=== PATIENT | female | born 1945 | race African-American/Black ===

== ENCOUNTER 2019-03-08 15:43 | Inpatient (IN) ==
[2019-03-08] MEDS ORDERED: CLINDAMYCIN 600 MG/NS 600 MG/50 ML IVPB IV ONE (17:39)
--- NOTE | 2019-03-08 18:04 | Diag Imaging Result Doc PS360 ---
EXAM: FINGER(S)-RIGHT 03/08/2019 HISTORY: right 3rd digit cellulitis TECHNIQUE: Right middle finger three views COMMENT: There is soft tissue swelling. There is cortical erosion of the tuft and the lateral base of the distal phalanx. This is highly suggestive of osteomyelitis. IMPRESSION: Osteomyelitis of the distal phalanx. Electronically signed by Eriberto Whitman 03/08/2019 6:02 PM
[2019-03-08 18:37] LABS: BASO# 0.02 X1000 (0.0-0.2); BASO% 0.1 % (0.0-0.8); EOS# 0.01 X1000 (0.0-0.7); EOS% 0.1 % (0.0-10.0); HEMATOCRIT 38.6 % (37.0-47.0); HEMOGLOBIN 12.4 g/dL (12.0-16.0); IMM GRAN# 0.06 X1000 (0.0-0.04); IMM GRAN% 0.4 % (0.0-0.5); LYMPH# 1.59 X1000 (1.2-3.4); LYMPH% 11.9 % (20.5-51.1); MCH 27.7 PG (27-31); MCHC 32.1 g/dL (33-37); MCV 86.2 FL (81-99); MONO# 0.81 X1000 (0.11-0.59); MONO% 6.1 % (1.7-9.3); MPV 9.8 FL (7.4-10.4); NEUT# 10.85 X1000 (1.4-6.5); NEUT% 81.4 % (42.2-75.2); PLT 329 X1000 (130-400); RBC 4.48 XMIL (4.2-5.4); WBC 13.34 X1000 (4.8-10.8)
[2019-03-08 18:57] LABS: AGAP 11; ALBUMIN 4.4 g/dL (3.5-5.0); ALKALINE PHOSPHATASE 71 U/L (32-104); BUN 18 mg/dL (8-22); CALCIUM 9.7 mg/dL (8.8-10.2); CHLORIDE 99 mmol/L (98-107); COSMO 280; CREATININE 0.8 mg/dL (0.5-0.9); ESTIMATED GFR > 60; GLUCOSE 205 mg/dL (70-104); GOT 19 U/L (10-30); GPT 12 U/L (10-36); POTASSIUM 4.6 mmol/L (3.5-5.1); SODIUM 136 mmol/L (136-145); TCO2 26 mmol/L (25-35); TOTAL PROTEIN 8.5 g/dL (6.3-8.3)
[2019-03-08] MEDS ORDERED: VANCOMYCIN IV PER PHARMACY MISC SCH ×2 (19:15→19:30)
[2019-03-08] MEDS ORDERED: ZOFRAN IV PRN (19:28)
[2019-03-08] MEDS ORDERED: TYLENOL PO PRN ×2 (19:28→21:44)
[2019-03-08] MEDS ORDERED: CLINDAMYCIN 600 MG/D5W 600 MG/50 ML IVPB IV ONE (19:30)
--- NOTE | 2019-03-08 19:48 | PROVIDER DOCUMENTATION ---
This chart was entered by Nicol Hernandez Scribe, acting as scribe for Kelly Abdalla CRNP. HPI-General Adult - General Chief Complaint: Extremity Pain Stated Complaint: FINGER SWELLING Time Seen by Provider: 03/08/19 16:00 Source: patient Allergies/Adverse Reactions: Patient Allergies Allergy/AdvReac Type Severity Reaction Status Date / Time No Known Allergies Allergy Verified 01/24/15 00:49 Home Medications: Home Medication List Medication Instructions Recorded Confirmed Last Taken Type Amlodipine Besylate 10 mg PO DAILY 01/24/15 01/24/15 Unknown History Aspirin [[place] Aspirin EC] 81 mg PO DAILY 01/24/15 01/24/15 01/23/15 15:00 History Clopidogrel [Plavix] 75 mg PO DAILY #30 tablet 01/24/15 Unknown Rx Colesevelam HCl [Welchol] 625 mg PO BID 01/24/15 01/24/15 Unknown History Hyoscyamine Sulfate 0.125 mg PO Q6H PRN PRN 01/24/15 01/24/15 Unknown History Lisinopril 40 mg PO DAILY 01/24/15 01/24/15 01/23/15 History Metformin HCl [Fortamet] 500 mg PO DAILY 01/24/15 01/24/15 Unknown History Methocarbamol [Robaxin] 500 mg PO Q6H PRN PRN #60 tablet 01/24/15 Unknown Rx Omeprazole 40 mg PO DAILY 01/24/15 01/24/15 Unknown History ROSUVAstatin [Crestor] 10 mg PO DAILY 01/24/15 01/24/15 Unknown History Clonidine [Catapres] 0.1 mg PO BID #60 tablet 01/25/15 Unknown Rx Cetirizine [Zyrtec] 10 mg PO DAILY #20 tab 03/03/17 Unknown Rx - History of Present Illness -Gen Adult Nature of Presenting Problems: Patient is a 73 yobf who complains of right 3rd digit pain and swelling x 1 week. States her hand and forearm were also swollen, but she started taking abx prescribed by her pcp Dr. Iqbal, and the swelling in her hand and forearm improved. Today she noticed that her fingertip "felt spongy", so she came in to be evaluated for this. Denies fever, injury, or any other complaints. Hx of IDDM. Pt non-toxic in appearance. Location of Pain/Injury: reports: other (rt 3rd digit of hand) Quality of Pain: reports: fullness, pressure Severity: reports: moderate Onset/Duration: reports: gradual Timing: reports: still present, improving, constant Context/Activities at Onset: reports: light activity Modifying Factors: improves with: other (abx) Associated Symptoms: reports: denies symptoms Similar Symptoms Previously?: Yes Recently seen or treated by another doctor?: Yes (dr iqbal and placed on abx) Review of Systems - Adult - REVIEW OF SYSTEMS - ADULT Constitutional: reports: no symptoms reported. denies: chills, fever Eyes: reports: no symptoms reported Ears, Nose, Mouth & Throat: reports: no symptoms reported Cardiovascular: reports: no symptoms reported. denies: chest pain, palpitations Respiratory: reports: no symptoms reported. denies: cough, shortness of breath, wheezing Gastrointestinal: reports: no symptoms reported. denies: abdominal pain, diarrhea, nausea, vomiting Genitourinary: reports: no symptoms reported Musculoskeletal: reports: see HPI, other (3rd rt digit on hand) Integumentary: reports: see HPI, other (redness and swelling noted to rt 3rd digit) Neurological: reports: no symptoms reported Psychiatric: reports: no symptoms reported Endocrine: reports: no symptoms reported Hematologic/Lymphatic: reports: no symptoms reported Allergic/Immunologic: reports: no symptoms reported All Other Systems: Reviewed and Negative Past History - Adult - PAST MEDICAL HISTORY-ADULT Review of Records: reports: Old Records Reviewed, Nursing Assessment Review, Medications Reviewed, Social history reviewed & non-contributory. 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 Other Conditions: reports: denies history - PRIOR SURGERIES/PROCEDURES Surgical/Procedure History: reports: reviewed, not pertinent, other (fibroids) - PRIOR HOSPITALIZATIONS Prior Hospitalizations: reports: for similar symptoms - IMMUNIZATION STATUS Childhood Immunizations: See Nurse Assessment Flu Vaccine: See Nurse Assessment - FAMILY HISTORY Family History: reviewed, not pertinent - SOCIAL HISTORY Smoking: denies Substance Use: denies Living Situation: family Physical Exam-General - PHYSICAL EXAM-ADULT Initial Vital Signs Reviewed: Yes - CONSTITUTIONAL General Appearance: alert, no apparent distress - EYES Eyes: PERRL/EOMI - HEAD, EARS, NOSE, MOUTH & THROAT HENMT: normocephalic/atraumatic, moist mucous membranes - NECK Neck: non-tender, full range of motion, supple, normal inspection - RESPIRATORY Respiratory: chest non-tender, lungs clear, normal breath sounds, no pleuratic chest pain, no respiratory distress, no accessory muscle use - CARDIOVASCULAR Cardiovascular: normal peripheral pulses, regular rate, rhythm, no gallop, no murmur - CHEST (BREASTS) Chest/Breast: deferred - GASTROINTESTINAL (ABDOMEN) Abdominal Exam: normal bowel sounds, non tender, soft - GENITOURINARY Female Genitalia/Pelvic Exam: deferred Rectal Exam: deferred Hemoccult Exam: deferred - LYMPHATIC Lymphatic: no adenopathy - MUSCULOSKELETAL Extremity: normal range of motion, non-tender, normal gait, normal inspection, erythema (rt 3rd digit), swelling (3rd rt digit), tenderness (rt 3rd digit), other (nail has sponginess with clubbing seen) Peripheral Pulses: radial (R): 3+ - SKIN Integumentary: normal color, warm/dry, erythema (3rd digit rt hand), swelling (3rd digit), tenderness (3rd digit rt hand). negative: cyanosis, diaphoresis, jaundice, mottled, pallor - NEUROLOGIC Neurologic: grossly normal, no motor/sensory deficits - PSYCHIATRIC Psych/Mental Status: normal mood/affect, normal thought content, normal thought process, oriented x 3 Progress - PLAN OF CARE/RESULTS Progress/Plan/Lab Results: Vital Signs - 8 hr 03/08/19 15:49 Temperature 98 F Pulse Rate 78 Respiratory Rate 18 O2 Sat by Pulse Oximetry 98 Laboratory Results - last 24 hr 03/08/19 15:53 POC Glucose 218 H Orders Category Date Time Status Finger Stick Blood Sugar (ED) DIRECTED Care 03/08/19 15:55 Active Repeat Vital Signs .Blood Pressure Care 03/08/19 17:33 Active Saline Loc NOW Care 03/08/19 17:39 Active FINGER(S)-RIGHT [RAD] Stat Exams 03/08/19 17:39 Ordered BLOOD CULTURE [BLDCUL] Stat Lab 03/08/19 17:39 Uncollected CBC WITH DIFF [HEME] Stat Lab 03/08/19 17:39 Ordered COMPREHENSIVE METABOLIC PANEL [CHEM] Stat Lab 03/08/19 17:39 Uncollected Clindamycin 600 mg/Ns Med 03/08/19 17:39 Active 600 mg in 50 ml IV NOW Result Diagrams: 03/08/19 18:25 03/08/19 18:25 - XRAY 1 XRAY: Right XRAY Study: other (third digit: [facility] - [address], [address], [place] [address] [facility] - [address] [place] [address] Department of Imaging Patient: LAURA BOLIVARADM Date: 03/08/19MR#: [id number] : 8ADM Status: REG ERAt#: [id number] Age/Sex: 73/FRoom/Bed: Loc: P.ED Ordering Physician: Kelly Abdalla Family Physician: Maxim Iqbal MD Reason for Procedure: right 3rd digit cellulitis Signed EXAM: FINGER(S)-RIGHT 03/08/2019 HISTORY: right 3rd digit cellulitis TECHNIQUE: Right middle finger three views COMMENT: There is soft tissue swelling. There is cortical erosion of the tuft and the lateral base of the distal phalanx. This is highly suggestive of osteomyelitis. IMPRESSION: Osteomyelitis of the distal phalanx. Electronically signed by Eriberto Whitman 03/08/2019 6:02 PM 03/08/191801 Interpreting Physician: Eriberto Whitman MD Dictated Date/Time: 03/08/191800 cc: Kelly Abdalla; Maxim Iqbal MD) - CONSULTS/PCP/HOSPITALIST Notification #1 *Consult/PCP/Hospitalist*: Dr. Iqbal Time Discussed: 19:20 Reason/Comments: admission- osteomyelitis Consult Disposition: Will see in ED, Admit (Manager Of Photography to enter orders.) Departure - Departure Date of Disposition Decision: 03/08/19 Time of Disposition Decision: 19:20 DIAGNOSIS: Osteomyelitis Qualifiers: Osteomyelitis type: unspecified type Osteomyelitis location: unspecified site Qualified Code(s): M86.9 - Osteomyelitis, unspecified Disposition: ADMITTED INPATIENT 09 Certified Medical Emergency: Emergent Condition: Stable Referrals and Follow-Ups: Maxim Iqbal MD [Primary Care Provider] - - Critical Care Note This patient required my direct & personal management of CC.: No Attestation - Physician/ TARA Attestation Patient care was provided by Advanced Practice Provider:: Yes Advanced Practice Provider documentation review:: The Mid-level provider documentation, treatment plan and medical decision making was reviewed by the physician who agrees with all treatment and medical decision making by the MLP. The physician spent face to face time with patient:: No Advanced Practice Provider documentation review:: Supervising physician onsite and consulted in the evaluation and care of this patient. The physician did not have a face to face encounter with the patient. This chart was documented by the indicated scribe, (Nicol Hernandez Scribe) and accurately reflects the services I performed and decisions made by me, Kelly Abdalla CRNP, as attested by the provider's signature.
[2019-03-08] MEDS: VANCOMYCIN 1 GM/NS 1 GM/250 ML IVPB IV SCH ×2 (21:00→22:15)
[2019-03-08] MEDS: NS 1,000 ML IV SCH (22:15)
[2019-03-08] MEDS: HUMALOG (PARKWAY) SUBQ SCH (23:13)
[2019-03-09] MEDS: ZOSYN 3.375 GM in NS 50 ML IV SCH ×4 (00:36→18:48)
[2019-03-09 02:11] LABS: URINE SOURCE CLEAN CATCH
[2019-03-09 02:40] LABS: BILIRUBIN URINE NEGATIVE (NEGATIVE); BLOOD URINE NEGATIVE (NEGATIVE); CLARITY CLEAR (CLEAR); GLUCOSE URINE NEGATIVE (NEGATIVE); KETONE URINE NEGATIVE (NEGATIVE); LEUKOCYTES URINE NEGATIVE (NEGATIVE); NITRITE URINE NEGATIVE (NEGATIVE); PROTEIN URINE NEGATIVE (NEGATIVE); URINE EPITHELIAL CELLS <10 /HPF (<10); UROBILINOGEN URINE 0.2 EU/dL (0.2-1.0)
[2019-03-09 02:42] LABS: URINE BACTERIA 2+ /HFP; URINE WBC NS /HPF (<10); URINE YEAST PRESENT /HPF
[2019-03-09 02:43] LABS: COLOR STRAW
--- NOTE | 2019-03-09 03:33 | HISTORY AND PHYSICAL ---
CHIEF COMPLAINT: Extremity pain. HISTORY OF PRESENT ILLNESS: The patient is a very pleasant female who presented to the office yesterday with swelling of her right hand and 2nd and 3rd digit on her right hand. Third digit being worse than the 2nd. She was placed on antibiotics and was told to call the office back today if symptoms worsened. She called back noting that her hand was less swollen, but her fingertip appears to be nonchanged. Currently, her right hand swelling is visibly better. Her MCP swelling is better but she still has marked swelling from her PIP distally. ALLERGIES: No known drug allergies. MEDICATIONS: Amlodipine 10, aspirin, Glucophage. PAST MEDICAL HISTORY: Hypertension, diabetes. SURGICAL HISTORY: She has had fibroids in her uterus. FAMILY HISTORY: Noncontributory. REVIEW OF SYSTEMS: The patient does complain of pain on her 3rd digit of her right hand, swelling to this digit. Notes that her hand swelling is improved. Denies any fevers, chills, but does state that she still has some sensation distally on the fingertips although it is tender. Denies any chest pain, palpitations. Denies fevers, chills, dysuria, urinary frequency, urgency, hesitancy, polyuria, polydipsia. Denies cough, congestion, diarrhea, constipation, melena. FAMILY HISTORY: Noncontributory. PHYSICAL EXAMINATION: VITAL SIGNS: Reviewed and stable. GENERAL: She is awake, alert. She is in no respiratory distress. HEENT: Normocephalic. NECK: Supple. CARDIOVASCULAR: Regular rate. CHEST: Clear. ABDOMEN: Soft. EXTREMITIES: Moves all extremities. NEUROLOGIC: No focal changes. SKIN: Her right 3rd digit is erythematous from the PIP distally. This is improved. She was previously erythematous to her mid hand as well as swelling to the mid hand. There is no current swelling in her hand. She has good capillary refill. The finger is tender, warm. Mild clubbing noted over fingertips. ASSESSMENT: 1. Cellulitis right fingertip with possible osteomyelitis per x-ray. 2. Diabetes. 3. Hypertension. PLAN: We will continue patient in the hospital. Continue antibiotics, place her on vancomycin and Zosyn. We will consult Surgery as I am afraid her fingertip may need to be drained and we will follow. cc: Maxim Iqbal MD
[2019-03-09] MEDS: HUMALOG (PARKWAY) SUBQ SCH ×4 (06:24→23:32)
[2019-03-09 06:34] LABS: HEMATOCRIT 39.4 % (37.0-47.0); HEMOGLOBIN 12.5 g/dL (12.0-16.0); MCH 27.6 PG (27-31); MCHC 31.7 g/dL (33-37); MPV 9.8 FL (7.4-10.4); RBC 4.53 XMIL (4.2-5.4); RDW 13.2 % (11.5-14.5); WBC 11.25 X1000 (4.8-10.8)
[2019-03-09 06:48] LABS: AGAP 13; ALKALINE PHOSPHATASE 65 U/L (32-104); BUN 16 mg/dL (8-22); CALCIUM 9.5 mg/dL (8.8-10.2); CHLORIDE 101 mmol/L (98-107); COSMO 283; CREATININE 0.8 mg/dL (0.5-0.9); ESTIMATED GFR > 60; GLUCOSE 114 mg/dL (70-104); GOT 18 U/L (10-30); GPT 11 U/L (10-36); POTASSIUM 3.8 mmol/L (3.5-5.1); SODIUM 141 mmol/L (136-145); TCO2 27 mmol/L (25-35); TOTAL PROTEIN 8.5 g/dL (6.3-8.3)
--- NOTE | 2019-03-09 11:33 | GENERAL SURGERY CONSULTATION ---
DATE: 03/09/2019 REQUESTING PHYSICIAN: Maxim Iqbal MD REASON FOR CONSULTATION: Right third digit infection. HISTORY OF PRESENT ILLNESS: A 73-year-old female who presented to Dr. Iqbal's office with swelling of her right hand and 2nd and 3rd digit with the 3rd digit being worse. She was placed on antibiotics and was sent home. Apparently these symptoms got worse. She called back and was admitted to the emergency department. She had an x-ray that showed potential osteomyelitis of the distal 3rd phalanx. She was admitted. I was asked to weigh an opinion. The patient says she has pain noted there. She is not sure when this started. PAST MEDICAL HISTORY: Hypertension, diabetes. PAST SURGICAL HISTORY: Includes fibroid removal for uterus. ALLERGIES: None. HOME MEDICATIONS: Reviewed. FAMILY HISTORY: Reviewed with the patient and noncontributory. SOCIAL HISTORY: Lives at home. REVIEW OF SYSTEMS: A full 10 point review of systems obtained, negative except as specified in HPI. PHYSICAL EXAMINATION: Vital Signs: Patient is currently afebrile. Her vital signs are stable. General: No acute distress. Alert, oriented. female looks stated age. HEENT: Normocephalic, atraumatic. Pupils equal, round, reactive to light. Mucous membranes moist. Oropharynx benign. Neck: Supple. Trachea midline. Cardiovascular: Regular rate and rhythm. Lungs: Clear. Abdomen: Soft, nontender, nondistended. Extremities: The 3rd digit has erythema and swelling as well as fluctuance noted on the dorsal aspect right at the mid aspect of the middle finger. Vascular: Extremities perfused. Neurologic: Grossly intact. Skin: As noted above. LABORATORY: White blood count 13. Remainder of labs reviewed. X-ray reviewed and noted above. ASSESSMENT AND PLAN: A 73-year-old female with right 3rd digit on the right hand. Infection of the finger. At this time, I performed a bedside incision and drainage and drained a significant amount of purulence. We will get a culture from it. We will continue to follow. Maybe with a combination of drain and antibiotics we can hold off on amputation, but told the patient with osteomyelitis it may ultimately require an amputation but will continue to follow. Please see dictation on operative report. cc: Emigdio Farah MD
--- NOTE | 2019-03-09 11:54 | OPERATIVE NOTE ---
PROCEDURE DATE: 03/09/2019 PREOPERATIVE DIAGNOSIS: Infection of the right middle finger. POSTOPERATIVE DIAGNOSIS: Infection of the right middle finger. PROCEDURE: Incision and drainage of right middle finger. SURGEON: Emigdio Farah MD. STATION SUPERINTENDENT: None. ANESTHESIA: None. FINDINGS: Significant purulence encountered. COMPLICATIONS: None. ESTIMATED BLOOD LOSS: Minimal. SPECIMEN: Removed culture. BRIEF HISTORY: A 73-year-old female admitted for antibiotics for infection of her finger so that she would benefit from drainage. The risks, benefits, and alternatives were discussed. All questions answered. DESCRIPTION OF PROCEDURE: After informed consent was obtained, the patient remained in the room. We prepped the finger with sterile alcohol prep. We then used an 18-gauge needle to unroof the abscess, expressed a significant amount of purulence, sent for culture, drained as much as we could, placed a dressing. The patient tolerated the procedure well, remained in her bed. cc: Emigdio Farah MD
[2019-03-09] MEDS: NS 1,000 ML IV SCH (14:52)
[2019-03-09] MEDS: VANCOMYCIN 1,700 MG in NS 250 ML IV SCH (23:32)
--- NOTE | 2019-03-10 00:04 | PROGRESS NOTE ---
DATE: 03/09/2019 SUBJECTIVE: Patient notes that after having finger drained it does not hurt nearly as bad. It is still draining some. She is able to move it a little bit better. Denies any fevers or chills. PHYSICAL EXAMINATION: Vital Signs: Temperature 98.6 degrees, pulse 75, respiratory rate 18, BP 112/73. General: Patient is in no current respiratory distress. She is very pleasant to talk with. HEENT: Normocephalic. Neck: Supple. Cardiovascular: Regular rate. Chest: Clear. Abdomen: Soft. Extremities: Moves all extremities. Skin: She is noted to have less edema and positive drainage from her right hand 3rd digit. ASSESSMENT: 1. Diabetes. 2. Hypertension. PLAN: We are going to continue patient in the hospital. Continue fluids, antibiotics, pain control and we will follow. cc: Maxim Iqbal MD
[2019-03-10] MEDS: NS 1,000 ML IV SCH ×3 (01:23→11:40)
[2019-03-10] MEDS: ZOSYN 3.375 GM in NS 50 ML IV SCH ×3 (02:06→13:21)
[2019-03-10] MEDS: HUMALOG (PARKWAY) SUBQ SCH ×4 (06:49→21:21)
[2019-03-10] MEDS: JANUVIA PO SCH (09:30)
[2019-03-10] MEDS: ASPIRIN EC PO SCH (09:31)
[2019-03-10] MEDS: PRINIVIL PO SCH (09:31)
[2019-03-10] MEDS: NORVASC PO SCH (09:31)
[2019-03-10] MEDS: COREG PO SCH ×2 (09:31→21:10)
[2019-03-10] MEDS: DITROPAN XL PO SCH (09:31)
--- NOTE | 2019-03-10 13:06 | GENERAL SURGERY PROGRESS NOTE ---
DATE: 03/10/2019 SUBJECTIVE: Patient seems to be doing okay. She is feeling better after her finger was drained. OBJECTIVE: Vital Signs: Patient is currently afebrile. Her vital signs are stable. General exam: No acute distress. HEENT: Normocephalic, atraumatic. Pupils equal, round, reactive to light. Mucous membranes moist. Oropharynx benign. Neck: Supple. Trachea midline. Cardiovascular: Regular rate and rhythm. Lungs: Grossly clear. Abdomen: Soft, nontender, nondistended. Extremities: Hand on the right: The digits seem to be improving. Better range of motion. Neurologic: Grossly intact. Skin: As noted above. LABORATORY: White blood cell count from yesterday was 11 which is down. Remainder of labs reviewed. ASSESSMENT AND PLAN: A 73-year-old female status post incision and drainage of right third digit. 1. Status post drainage at this time. She seems to be doing well. She does have the potential for osteomyelitis on x-rays. Would like to continue suppressive antibiotics. Continue to monitor. She has made some clinical improvement. cc: Emigdio Farah MD
--- NOTE | 2019-03-10 15:58 | PROGRESS NOTE ---
DATE: 03/10/2019 SUBJECTIVE: Patient notes that her finger is feeling a lot better. She is able to bend it a lot better than she was previously. PHYSICAL EXAMINATION: Vital Signs: Reviewed. Temperature 98 degrees, pulse 74, respiratory rate 18, BP 171/89. General: Patient is very pleasant. She is in no respiratory distress. HEENT: Normocephalic. Neck: Supple. Cardiovascular: Regular rate. Chest: Clear. Abdomen: Soft. Extremities: Moves all extremities. Skin: Her right third digit has less swelling and better movement. ASSESSMENT: 1. Cellulitis, right third digit with possible osteomyelitis per x-ray. We will recheck this on Tuesday. 2. Diabetes. 3. Hypertension. PLAN: Continue antibiotics through the weekend. Recheck her x-ray on Tuesday. Follow her blood sugars, which have been well controlled. cc: Maxim Iqbal MD
[2019-03-10] MEDS: ZOCOR PO SCH (21:10)
[2019-03-10] MEDS: VANCOMYCIN 1,700 MG in NS 250 ML IV SCH (21:10)
[2019-03-10] MEDS: GLUCOTROL XL PO SCH ×2 (21:10→21:14)
[2019-03-11] MEDS: ZOSYN 3.375 GM in NS 50 ML IV SCH ×2 (01:00→08:22)
[2019-03-11] MEDS: HUMALOG (PARKWAY) SUBQ SCH ×4 (06:36→21:48)
[2019-03-11] MEDS: NS 1,000 ML IV SCH ×2 (06:36→11:48)
[2019-03-11 06:48] LABS: HEMATOCRIT 38.4 % (37.0-47.0); HEMOGLOBIN 12.1 g/dL (12.0-16.0); MCH 27.1 PG (27-31); MCHC 31.5 g/dL (33-37); MCV 86.1 FL (81-99); MPV 9.7 FL (7.4-10.4); RBC 4.46 XMIL (4.2-5.4); RDW 12.9 % (11.5-14.5); WBC 6.12 X1000 (4.8-10.8)
[2019-03-11 07:10] LABS: AGAP 12; ALBUMIN 3.6 g/dL (3.5-5.0); ALKALINE PHOSPHATASE 55 U/L (32-104); BUN 13 mg/dL (8-22); CALCIUM 9.2 mg/dL (8.8-10.2); CHLORIDE 104 mmol/L (98-107); COSMO 280; CREATININE 0.7 mg/dL (0.5-0.9); ESTIMATED GFR > 60; GLUCOSE 148 mg/dL (70-104); GOT 13 U/L (10-30); GPT 8 U/L (10-36); POTASSIUM 4.1 mmol/L (3.5-5.1); SODIUM 139 mmol/L (136-145); TCO2 23 mmol/L (25-35); TOTAL PROTEIN 7.7 g/dL (6.3-8.3)
[2019-03-11] MEDS: NORVASC PO SCH (08:22)
[2019-03-11] MEDS: DITROPAN XL PO SCH (08:22)
[2019-03-11] MEDS: COREG PO SCH ×2 (08:23→21:47)
[2019-03-11] MEDS: PRINIVIL PO SCH (08:23)
[2019-03-11] MEDS: JANUVIA PO SCH (08:23)
[2019-03-11] MEDS: ASPIRIN EC PO SCH (08:23)
--- NOTE | 2019-03-11 08:35 | GENERAL SURGERY PROGRESS NOTE ---
DATE: 03/11/2019 SUBJECTIVE: The patient seems to be doing okay. OBJECTIVE: Vital Signs: The patient is currently afebrile. Her vital signs are stable. General Examination: No acute distress. HEENT: Normocephalic, atraumatic. Pupils equal, round, reactive to light. Mucous membranes moist. Oropharynx benign. Neck: Supple. Trachea midline. Cardiovascular: Regular rate and rhythm. Lungs: Grossly clear. Abdomen: Soft, nontender, nondistended. Extremities: Moves all extremities. On the hand on the right, the digit seems to be improving. She has got better range of motion. She says she is feeling better. Neurologic: Grossly intact. Skin: As noted above. Laboratory: None this morning. Microbiology shows gram-positive cocci. ASSESSMENT AND PLAN: A 73-year-old female status post incision and drainage of right third digit. Status post drainage. At this time, she is doing well. Consider potential repeat x-rays tomorrow. We will continue suppressive antibiotics. There is a concern that she might have osteomyelitis of the distal phalanx. cc: Emigdio Farah MD
[2019-03-11] MEDS ORDERED: CLEOCIN PO SCH (09:45)
[2019-03-11] MEDS: KEFZOL 1 GM/D5W 1 GM/50 ML IVPB IV SCH ×2 (13:42→21:48)
--- NOTE | 2019-03-11 16:47 | PROGRESS NOTE ---
DATE: 03/11/2019 SUBJECTIVE: Patient notes that her finger is feeling a lot better. She has got better movement, has very little drainage. PHYSICAL: Temperature 98.3, pulse 70, respiratory 18, BP 169/70.General: Patient is awake, she is pleasant, she is in no distress. HEENT: Normocephalic. Neck: Supple. CV: Regular rate. Chest: Clear. Abdomen: Soft. Extremities: Moves all extremities. ASSESSMENT: 1. Osteomyelitis 4th digit right hand. 2. Methicillin sensitive Staph aureus. 3. Diabetes. 4. Hypertension. PLAN: We are going to continue patient in the hospital. Dr. Padilla wants 6 weeks of IV Ancef. We will keep her in the hospital today, she has PICC line consult and will follow. cc: Maxim Iqbal MD
[2019-03-11] MEDS: GLUCOTROL XL PO SCH (21:47)
[2019-03-11] MEDS: ZOCOR PO SCH (21:48)
[2019-03-12] MEDS: KEFZOL 1 GM/D5W 1 GM/50 ML IVPB IV SCH ×3 (04:03→21:24)
[2019-03-12] MEDS: HUMALOG (PARKWAY) SUBQ SCH ×4 (06:17→21:24)
[2019-03-12 07:06] LABS: INR 1.06; PROTIME 14.4 Seconds (11.0-16.0)
--- NOTE | 2019-03-12 07:44 | GENERAL SURGERY PROGRESS NOTE ---
DATE: 03/12/2019 SUBJECTIVE: Patient seems to be doing okay. Her finger is a little bit more swollen today, but otherwise she is doing okay. OBJECTIVE: Vital Signs: Patient is currently afebrile. Her vital signs are stable. General: No acute distress. HEENT: Normocephalic, atraumatic. Pupils equal, round, reactive to light. Mucous membranes moist. Oropharynx benign. Neck: Supple. Trachea midline. Cardiovascular: Regular rate and rhythm. Lungs: Grossly clear. Abdomen: Soft, nontender, nondistended. Extremities: Right third digit of the hand appears a little more swollen, but I do not feel any additional fluctuance at this time. She still has good range of motion. Neurologic: Grossly intact. Skin: As noted above. Vascular: All extremities perfused. LABORATORY: White blood cell count yesterday was 6, which is down from admission. Remainder of labs reviewed. ASSESSMENT AND PLAN: A 73-year-old female status post incision and drainage of right third digit. 1. Status post drainage at this time. She is doing okay. She still has some deformity to her finger, and we will get a repeat x-ray this morning per Dr. Iqbal to evaluate if still with osteomyelitis. I am concerned she still may have it and may ultimately require amputation. cc: Emigdio Farah MD
[2019-03-12] MEDS: DITROPAN XL PO SCH (09:06)
[2019-03-12] MEDS: NORVASC PO SCH (09:06)
[2019-03-12] MEDS: ASPIRIN EC PO SCH (09:06)
[2019-03-12] MEDS: PRINIVIL PO SCH (09:06)
[2019-03-12] MEDS: COREG PO SCH ×2 (09:06→21:23)
[2019-03-12] MEDS: JANUVIA PO SCH (09:06)
[2019-03-12] MEDS: NS 1,000 ML IV SCH (11:11)
--- NOTE | 2019-03-12 19:39 | PROGRESS NOTE ---
DATE: 03/12/2019 SUBJECTIVE: The patient with no new complaints. Notes that her finger continues to improve. She has better movement. PHYSICAL EXAM: Vital signs: Temperature 98.3 degrees, pulse 70, respiratory rate 18, BP 169/70. General: Patient is in no current distress. She is very pleasant. HEENT: Normocephalic. Neck: Supple. Cardiovascular: Regular rate. Chest: Clear. Abdomen: Soft. Extremities: Moves all extremities. Skin: Her PIP of her third digit is improving. She has some dryness and cracking of the skin, less tender. No current drainage. ASSESSMENT: 1. Methicillin-sensitive Staph aureus of her fingertip. 2. Osteomyelitis. 3. Diet-controlled diabetes. 4. Hypertension. PLAN: We are going to continue patient in the hospital until which time she have a peripherally inserted central catheter line placed. She will need antibiotics, Ancef 4 to 6 weeks. cc: Maxim Iqbal MD
[2019-03-12] MEDS: ZOCOR PO SCH (21:23)
[2019-03-12] MEDS: GLUCOTROL XL PO SCH (21:24)
[2019-03-13] MEDS: KEFZOL 1 GM/D5W 1 GM/50 ML IVPB IV SCH ×3 (04:15→22:54)
[2019-03-13] MEDS: HUMALOG (PARKWAY) SUBQ SCH ×4 (06:30→22:34)
--- NOTE | 2019-03-13 08:09 | Diag Imaging Result Doc PS360 ---
EXAM: FINGER(S)-RIGHT HISTORY: eval for osteo TECHNIQUE: Right third finger three views COMPARISON: 03/08/2019 FINDINGS: There is osteolysis involving the distal phalanx of the third finger. Prominent soft tissue swelling is present. Small erosion to the distal portion of the middle phalanx. IMPRESSION: Worsening osteomyelitis Electronically signed by Davian Wilkinson 03/13/2019 8:07 AM
[2019-03-13] MEDS: DITROPAN XL PO SCH (09:41)
[2019-03-13] MEDS: COREG PO SCH ×2 (09:41→20:56)
[2019-03-13] MEDS: PRINIVIL PO SCH (09:41)
[2019-03-13] MEDS: ASPIRIN EC PO SCH (09:41)
[2019-03-13] MEDS: JANUVIA PO SCH (09:41)
[2019-03-13] MEDS: NORVASC PO SCH (09:41)
[2019-03-13] MEDS: NS 1,000 ML IV SCH (10:23)
--- NOTE | 2019-03-13 10:31 | GENERAL SURGERY PROGRESS NOTE ---
DATE: 03/13/2019 SUBJECTIVE: Patient seems to be doing okay. We are awaiting a PICC line placement. OBJECTIVE: Vital Signs: Patient is currently afebrile. Her vital signs stable. General: No acute distress. HEENT: Normocephalic, atraumatic. Pupils equal, round, reactive to light. Mucous membranes moist. Oropharynx benign. Neck: Supple, trachea midline. Cardiovascular: Regular rate and rhythm. Lungs: Grossly clear. Abdomen: Soft, nontender, nondistended. Extremities: Right 3rd digit appears stable. Vascular: All extremities perfused. Neurologic: Grossly intact. Skin: As noted above. LABORATORY: None this morning and none yesterday. ASSESSMENT AND PLAN: A 73-year-old female status post incision and drainage of right third digit. 1. Status post drainage. At this time, she is doing okay. We are waiting for a PICC line placement, so she can get IV antibiotics for 4 to 6 weeks. 2. We will continue to follow while she is in the hospital but hopefully she can get discharged today with a PICC line. cc: Emigdio Farah MD
--- NOTE | 2019-03-13 12:22 | DISCHARGE SUMMARY ---
ADMISSION DATE: 03/08/2019 DISCHARGE DATE: 03/12/2019 ADMISSION DIAGNOSES: 1. Cellulitis of right fingertip with possible osteomyelitis per x-ray. 2. Diabetes. 3. Hypertension. DISCHARGE DIAGNOSES: 1. Osteomyelitis of fourth digit, right hand. 2. Methicillin-resistant Staphylococcus aureus. 3. Diabetes. 4. Hypertension. CONSULTATIONS: 1. Dr. Padilla will follow the patient for 6 weeks of IV Ancef. 2. Sofi Tenorio. 3. Dr. Iqbal. SURGERIES OR PROCEDURES: On 03/09/2019, an incision and drainage of right middle finger with culture obtained which grew out MRSA which actually was oxacillin-sensitive, penicillin-resistant. HOSPITAL COURSE: Ms. Pickard is a 73-year-old female who presented to Dr. Iqbal's office the day before with swelling in her right hand, second and third digits on the right hand, third digit being worse than the second. She was placed on antibiotics. Was told to call the office back if symptoms worsened. She called back, stating that the hand was less swollen but her fingertip appeared to be unchanged. She was directly admitted to the floor and surgery was consulted. Eventually, Dr. Padilla was also consulted. Actually, I believe she went through the emergency department, not direct admission. On the day after admission, she had incision and drainage of that finger. The wound came back positive ORSA, oxacillin-sensitive but penicillin-resistant. She was continued on antibiotic. White blood cell count decreased. Then the plan was for Dr. Padilla to follow the patient on 6 weeks of IV Ancef with PICC line placement. DISCHARGE VITAL SIGNS: Temperature 98.3 degrees, heart rate 75, respiratory rate 18, blood pressure 144/74, O2 saturation 97% on room air. DISCHARGE LAB DATA: White blood cells 6000, hemoglobin 12, hematocrit 38, platelet count 313,000. INR is 1.06. Sodium 139, potassium 4.1, BUN 13, creatinine 0.7, glucose 135, calcium 9.2, magnesium 2.0. Bilirubin 0.30, AST 13, ALT 8, albumin 3.6. Micro: Blood cultures negative. Urine culture negative. Abscess of the right hand, middle finger, was oxacillin-sensitive Staphylococcus aureus. PERTINENT IMAGING: There was one finger x-ray that was back on the and it showed osteomyelitis of the distal phalanx. DISCHARGE MEDICATIONS: 1. Six weeks of Ancef. 2. Amlodipine 10 mg p.o. daily. 3. Coreg 12.5 mg p.o. twice daily. 4. Glipizide 5 mg p.o. nightly. 5. Januvia 100 mg p.o. daily. 6. Lisinopril 40 mg p.o. daily. 7. Oxybutynin 10 mg p.o. daily. 8. Simvastatin 20 mg p.o. daily. 9. Aspirin 81 mg p.o. daily. DISCHARGE DIET: Diabetic. DISCHARGE ACTIVITY: As tolerated. PHYSICIAN FOLLOWUP: Dr. Iqbal, Dr. Padilla, Dr. Farah. DISCHARGE INSTRUCTIONS: If your condition changes, contact physician and/or return to the emergency department. Changes may include, but are not limited to shortness of breath, increased fatigue, excessive bleeding, unexplained weight loss or gain, unmanageable pain, signs or symptoms of infection. You will have 6 weeks of antibiotics. Take all medications as prescribed. Call and make a followup appointment with your PCP. Call Dr. Padilla's office and make a followup appointment. If your symptoms persist or become worse, come to the emergency department. Wound care per Dr. Farah. DISCHARGE DISPOSITION: Home with home health. Dictated by BECKY Virgen for Maxim Iqbal MD cc: BECKY Virgen MD
[2019-03-13] MEDS ORDERED: NS 250 ML ONE (13:32)
--- NOTE | 2019-03-13 19:16 | PROGRESS NOTE ---
DATE: 03/13/2019 SUBJECTIVE: Patient has no new complaints. Overall, she states she is feeling fine. PHYSICAL EXAMINATION: Vital signs: Reviewed. Temperature 98 degrees, pulse 70, respiratory rate 18, BP 169/70. General: Patient is in no current respiratory distress. Pleasant to talk with. HEENT: Normocephalic. Neck: Supple. Cardiovascular: Regular rhythm and rate. Chest: Clear. Abdomen: Soft. Extremities: Moves all extremities. Skin: Third digit of right hand is bandaged, clean, dry, and intact. She does have some dryness of her skin over her previous wound. ASSESSMENT/PLAN: Osteomyelitis. Unfortunately, it appears as though her x-ray has worsened. Therefore, we are going to cancel her discharge today. We will get her set up with a PICC line as she certainly is going to need long-term antibiotics and will continue to follow. cc: Maxim Iqbal MD
[2019-03-13] MEDS: ZOCOR PO SCH (20:56)
[2019-03-13] MEDS: GLUCOTROL XL PO SCH (22:34)
[2019-03-14] MEDS: HUMALOG (PARKWAY) SUBQ SCH ×4 (06:22→21:54)
[2019-03-14] MEDS: KEFZOL 1 GM/D5W 1 GM/50 ML IVPB IV SCH ×3 (06:26→23:00)
--- NOTE | 2019-03-14 06:45 | GENERAL SURGERY PROGRESS NOTE ---
DATE: 03/14/2019 SUBJECTIVE: The patient did okay. Unfortunately her x-ray yesterday showed worsening osteomyelitis of the finger. A PICC line has been ordered. OBJECTIVE: Vital Signs: Patient is currently afebrile. Vital signs stable. General: No acute distress. Cardiovascular: Regular rate and rhythm. Lungs: Grossly clear. Abdomen: Soft, nontender, nondistended. Extremities: Right hand 3rd digit appears stable. Dressing intact. No active drainage. ASSESSMENT AND PLAN: A 73-year-old female with osteomyelitis of the right third digit, status post drainage. Status post drainage. At this time we will need to get a peripherally inserted central catheter (PICC) line. I did discuss the option of an amputation on her but she does want to try to pursue antibiotics first. We will hopefully be able to get everything arranged. cc: Emigdio Farah MD
[2019-03-14] MEDS: NS 1,000 ML IV SCH ×3 (07:55→13:16)
[2019-03-14] MEDS: JANUVIA PO SCH (08:59)
[2019-03-14] MEDS: NORVASC PO SCH (08:59)
[2019-03-14] MEDS: PRINIVIL PO SCH (08:59)
[2019-03-14] MEDS: COREG PO SCH ×2 (08:59→21:08)
[2019-03-14] MEDS: ASPIRIN EC PO SCH (08:59)
[2019-03-14] MEDS: DITROPAN XL PO SCH (08:59)
[2019-03-14] MEDS: ZOCOR PO SCH (21:08)
[2019-03-14] MEDS: GLUCOTROL XL PO SCH (21:08)
--- NOTE | 2019-03-15 04:15 | PROGRESS NOTE ---
DATE: 03/14/2019 SUBJECTIVE: Patient has no new complaints. PHYSICAL EXAMINATION: Vital Signs: Reviewed. Temperature 98.2 degrees, pulse 69, respiratory rate 18, BP 148/77. General: Patient is awake, pleasant. She is in no distress. HEENT: Normocephalic. Neck: Supple. Cardiovascular: Regular rate. Chest: Clear. Abdomen: Soft. Extremities: Moves all extremities. Neurologic: No changes. ASSESSMENT: 1. Osteomyelitis 3rd digit right hand. Bone, unfortunately, does appear worse on most recent x- ray. 2. Diabetes. Blood sugar controlled. 3. Hypertension. PLAN: We will continue Ancef for methicillin sensitive Staph aureus. When she gets a PICC, hopefully, she can discharge home. She will continue antibiotics at home for the next 6 weeks. cc: Maxim Iqbal MD
[2019-03-15 05:33] VITALS: BP 150/74
[2019-03-15] MEDS: NS 1,000 ML IV SCH (05:59)
[2019-03-15] MEDS: HUMALOG (PARKWAY) SUBQ SCH ×2 (06:00→11:06)
[2019-03-15] MEDS: KEFZOL 1 GM/D5W 1 GM/50 ML IVPB IV SCH ×3 (06:00→14:23)
[2019-03-15] MEDS: JANUVIA PO SCH (09:15)
[2019-03-15] MEDS: NORVASC PO SCH (09:15)
[2019-03-15] MEDS: PRINIVIL PO SCH (09:15)
[2019-03-15] MEDS: DITROPAN XL PO SCH (09:15)
[2019-03-15] MEDS: ASPIRIN EC PO SCH (09:15)
[2019-03-15] MEDS: COREG PO SCH (09:16)
--- NOTE | 2019-03-15 12:13 | GENERAL SURGERY PROGRESS NOTE ---
DATE: 03/15/2019 SUBJECTIVE: Patient doing okay. Discussed case with Dr. Iqbal. Plan for PICC line and long- term antibiotics has been started. OBJECTIVE: Vital Signs: The patient is currently afebrile. Her vital signs are stable. General Examination: No acute distress. Cardiovascular: Regular rate and rhythm. Lungs: Grossly clear. Abdomen: Soft, nontender. Right hand essentially unchanged with dressing intact. ASSESSMENT AND PLAN: A 73-year-old female with osteomyelitis of the right 3rd digit, status post drainage. Status post drainage. At this time, continue with current treatment and care. Continue intravenous antibiotics. She is to get a peripherally inserted central catheter line and hopefully can be discharged after that. cc: Emigdio Farah MD
--- NOTE | 2019-03-16 15:42 | DISCHARGE SUMMARY ---
ADMISSION DATE: 03/08/2019 DISCHARGE DATE: 03/15/2019 ADMISSION DIAGNOSES: 1. Cellulitis right fingertip, possible osteomyelitis per x-ray. 2. Diabetes. 3. Hypertension. DISCHARGE DIAGNOSES: 1. Osteomyelitis, 3rd digit of the right hand and, unfortunately, the bone is worsening on the most recent x-ray. 2. Diabetes. 3. Hypertension. 4. Oxacillin-sensitive Staphylococcus aureus. CONSULTATIONS: Dr. Emigdio Farah, cellulitis of the right finger. SURGERIES OR PROCEDURES: On 03/09/2019 Dr. Farah did an incision and drainage of the right middle finger. HOSPITAL COURSE: Ms. Isela Pickard is a 73-year-old female who presented to [facility] on March 08 for extremity pain, and was diagnosed with cellulitis of the right fingertip, possible osteomyelitis per x-ray. Dr. Farah was consulted who did an incision and drainage of the finger. She was started on vancomycin and Zosyn. He did the procedure the day after admission and it seemed to improve on a daily basis, but then there was concern that there really was osteomyelitis of the finger. Dr. Padilla requested 6 weeks of IV Ancef so she is going to have a PICC line consult prior to discharge, and even felt like really there could be a chance that she would need amputation eventually. The wound came back ORSA sensitive. She was discharged today. DISCHARGE VITAL SIGNS: Temperature 98.5 degrees, heart rate 77, respiratory rate 20, blood pressure 150/74, O2 saturation 99% on room air. DISCHARGE LAB DATA: White blood cells 6,000, hemoglobin 12, hematocrit 38, platelet count 313,000. INR is 1.06, glucose 129, sodium 139, potassium 4.1, BUN 13, creatinine 0.7, calcium 9.2, magnesium 2.0, bilirubin 0.30, AST 13, ALT 8, albumin 3.6. PERTINENT IMAGING: Finger x-ray on March 08, osteomyelitis of the distal phalanx. Finger x-ray on March 13, worsening osteomyelitis. DISCHARGE MEDICATIONS: Amlodipine, Coreg, glipizide, Januvia, lisinopril, oxybutynin, simvastatin, aspirin. She is going to go home with IV Ancef. DISCHARGE PHYSICIAN FOLLOWUPS: 1. Maxim Iqbal MD. 2. Aakash Padilla MD. 3. Emigdio Farah MD. DISCHARGE DIET: Diabetic. DISCHARGE ACTIVITY: As tolerated. DISCHARGE INSTRUCTIONS: If your condition changes, contact physician and/or return to the emergency department. Changes may include, but not limited to, shortness of breath, increased fatigue, excessive bleeding, unexplained weight loss or gain, unmanageable pain, signs or symptoms of infection. You will have 6 weeks of antibiotics. Take all medications as prescribed. Take care of your PICC line. Make a followup appointment with the primary care provider. Call Dr. Padilla's office and make a followup appointment. If your symptoms persist or become worse come to the emergency department. Wound care per Dr. Farah. DISPOSITION: Home with home health. Dictated by BECKY Virgen for Maxim Iqbal MD cc: BECKY Virgen MD
--- NOTE | 2019-03-16 18:40 | DISCHARGE SUMMARY ---
ADMISSION DATE: 03/08/2019 DISCHARGE DATE: 03/15/2019 On discharge patient is awake, alert, she is pleasant. She was admitted to the hospital secondary to cellulitis of her 3rd digit right hand. Dr. Farah was able to drain a fair amount of pus. This did grow methicillin sensitive Staph aureus. Unfortunately, her x-ray continued to worsen and on discharge she does have significant osteomyelitis, certainly concerning that she may end up having amputation of that finger. Patient is aware of this and myself and Dr. Farah has discussed it with her. We are going to continue Ancef 3 times a day, she has a PICC line and hopefully this will improve her finger not require amputation. Patient understands and desires to try antibiotics first. cc: Maxim Iqbal MD
== END 2019-03-15 14:28 | disposition home health service (06) | DRG 638 ==
LOC: P.ED 15:43 → P.MEDSURG 20:50
PROVIDERS: ATTEND Family Medicine